=== PATIENT | female | born 1990 | race Caucasian/White ===

== ENCOUNTER 2019-01-12 19:06 | Emergency (ER) | payer OTHER, BC ==
[2019-01-12 20:36] LABS: URINE BLOOD (Dip) POC 1+ (NEGATIVE); URINE GLUCOSE (Dip) POC Negative (NEGATIVE); URINE KETONES (Dip) POC Negative (NEGATIVE); URINE LEUKOCYTE EST (Dip) POC Trace (NEGATIVE); URINE NITRITE (Dip) POC Negative (NEGATIVE); URINE TOTAL PROTEIN POC Negative (NEGATIVE)
[2019-01-12] MEDS: ONDANSETRON (ODT) 4 MG TAB ODT (20:41)
[2019-01-12] MEDS: ACETAMINOPHEN 325 MG TAB PO (20:42)
[2019-01-12] MEDS: KETOROLAC 30 MG INJ IM (22:16)
== END 2019-01-12 22:30 | disposition home or self-care (01) ==
LOC: FTE 19:06
DX: R51 Headache (principal); R11.0 Nausea
CPT/HCPCS: 70450; 81003; 81025; 96372; 99285-25